=== PATIENT | female | born 1970 | race Caucasian/White ===

== ENCOUNTER 2019-05-14 18:19 | Emergency (ER) | payer OTHER ==
[~2019-05-14] VITALS: Ht 170.2 cm; Wt 92.0 kg
[~2019-05-14 18:19] MED LIST: LEVO125T71 PO; TRIA1CAP PO
[2019-05-14 18:24] VITALS: Ht 170.2 cm; Wt 92.0 kg
[2019-05-14] MEDS ORDERED: NITROGLYCERIN 2% 1 GM OINT PKT TD ONE (21:00)
[2019-05-14] MEDS ORDERED: FUROSEMIDE 40 MG INJ IV ONE (21:00)
[2019-05-14 22:09] VITALS: BP 111/59; PULSE 59; RESP 16
== END 2019-05-14 22:31 | disposition home or self-care (01) ==
LOC: E/R 18:19
DX: R06.02 Shortness of breath (principal); I11.0 Hypertensive heart disease with heart failure; I50.9 Heart failure, unspecified; I25.2 Old myocardial infarction; R60.1 Generalized edema; M25.561 Pain in right knee; Z95.0 Presence of cardiac pacemaker
CPT/HCPCS: 71045; 73562; 80048; 83880; 84484; 84703; 85025; 85610; 85730; 93005; 93971; 96374; J1940; Z7502; Z7610